=== PATIENT | female | born 1980 | race Caucasian/White ===

== ENCOUNTER 2017-06-03 11:09 | Emergency (ER) | payer OTHER ==
--- NOTE | ~2017-06-03 | CT71 ---
[facility] A Service of [facility] RADIOLOGY TEXT RESULTS PATIENT: JUDY LONDON LOCATION: SED : 84 UNIT #: [id number] AGE: [address]: Sean Kendrick MD SEX: F ORDER DR: [id number] [place] [id number] MR#: [id number] Acc #: [id number] NAME: JUDY LONDON : 1980 SEX: F STUDY DATE/TIME: 06/03/2017 14:44 UNIT: SED ROOM: STUDY DESCRIPTION: CT Head Wo Contrast Attending Physician: Sean Kendrick M.D. Ordering Physician: Sean Kendrick M.D. MEDICAL IMAGING REPORT This report is preliminary unless electronic signature is present. EXAM CT head without contrast INDICATIONS Left-sided headache for the past week. TECHNIQUE Unenhanced CT head. This CT exam was performed with one or more of the following radiation dose reduction techniques: automatic exposure control, adjustment of mA and/or kV according to patient size, and iterative reconstruction. COMPARISON STUDIES None. FINDINGS No acute hemorrhage, abnormal mass effect, extraaxial fluid collection or hydrocephalus. No depressed calvarial fracture. The paranasal sinuses and mastoid air cells are clear. IMPRESSION No acute intracranial findings. Dictated by... Lonnie Brown M.D. THIS IS AN ELECTRONICALLY VERIFIED REPORT Lonnie Brown M.D. at 06/04/2017 8:29 AM EED/pcl [facility] A Service of [facility] RADIOLOGY TEXT RESULTS PATIENT: JUDY LONDON LOCATION: SED : 84 UNIT #: [id number] AGE: [address]: Sean Kendrick MD SEX: F ORDER DR: TD: 06/04/2017 02:31 JOB #: [id number] MEDICAL IMAGING REPORT Page 1 of 1
[~2017-06-03 11:09] MED LIST: METHADOSE PO; NAPROXEN PO; ZOFRAN ODT4 MG
[2017-06-03 14:19] LABS: ALBUMIN SERUM 3.9 g/dL (3.5-5.0); BILIRUBIN,TOTAL 0.4 mg/dL (0.2-2.0); CALCIUM SERUM 8.2 mg/dL (8.4-10.2); POTASSIUM 3.8 mmol/L (3.5-5.1); PROTEIN TOTAL SERUM 6.3 g/dL (6.0-8.3)
[2017-06-03 14:40] LABS: BASOPHIL% 0.8 % (0-2.5); EOSINOPHIL# 0.4 X10e3 (0-0.7); EOSINOPHIL% 8.4 % (0.0-7.0); HEMATOCRIT 37.8 % (35.0-45.0); HEMOGLOBIN 12.8 gm/dL (12.0-16.0); LYMPHOCYTE% 42.4 % (17.0-45.0); MEAN CELL VOLUME 93.3 FL (83-96); MEAN CORPUSCULAR HEMOGLOBIN 31.6 PG (28-34); MEAN CORPUSCULAR HGB CONC 33.9 g/dL (30-36); MEAN PLATELET VOLUME 7.7 FL (6.5-11.5); MONOCYTE# 0.4 X10e3 (0-1.0); MONOCYTE% 8.1 % (3.0-12.0); NEUTROPHIL# 1.9 X10e3 (1.5-7.1); NEUTROPHIL% 40.3 % (40-75); PLATELET COUNT 120 X10e3 (140-420); RED BLOOD COUNT 4.05 X10e (3.90-5.30); RED CELL DISTRIBUTION WIDTH 13.4 % (11.0-15.5); WHITE BLOOD COUNT 4.7 X10e3 (4.0-10.5)
[2017-06-03 14:47] LABS: DIFF IND NO
[2017-06-03 15:58] LABS: URINE SOURCE CLEAN CATCH
[2017-06-03 16:01] LABS: URINE APPEARANCE CLEAR; URINE BILIRUBIN NEG (NEG); URINE BLOOD NEG (NEG); URINE COLOR YELLOW; URINE GLUCOSE NEG (NORM); URINE KETONE NEG (NEG); URINE LEUKOCYTE ESTERASE NEG (NEG); URINE NITRATE NEG (NEG); URINE PROTEIN NEG (NEG); URINE SPECIFIC GRAVITY <=1.005 (1.003-1.035); URINE UROBILINOGEN 0.2 MG/DL (NORM)
[2017-06-03 16:07] LABS: MICRO INDICATED? NO
[2017-06-03 16:11] LABS: AMPHETAMINE NEG (NEG); BARBITURATES NEG (NEG); BENZODIAZEPINES NEG (NEG); COCAINE NEG (NEG); MARIJUANA NEG (NEG); OPIATES NEG (NEG); TRICYCLIC ANTIDEPRESSANTS NEG (NEG); U METHADONE POS (NEG)
== END 2017-06-03 16:33 | disposition home or self-care (01) ==
LOC: SED 11:09
PROVIDERS: Emergency Medicine
DX: R51 Headache (principal); F17.200 Nicotine dependence, unspecified, uncomplicated
CPT/HCPCS: 36415; 70450; 80053; 80307; 81003; 84703; 85025; 96361; 96374; 96375; 99284; J0780; J1100; J1200; J2405